=== PATIENT | female | born 1955 | race Caucasian/White ===

== ENCOUNTER 2017-06-20 06:09 | Emergency (ER) | payer MEDICAID ==
[2017-06-20] MEDS ORDERED: Sodium Chloride 0.9% 1,000 ML IV SCH ×2 (06:45→07:00)
--- NOTE | 2017-06-20 06:46 | EDM.PDOC ---
<Keon Rowe Radha - Last Filed: 06/20/17 07:00> ED HPI GENERAL MEDICAL PROBLEM - General Chief Complaint: Gastrointestinal Problem Stated Complaint: VOMITING BLOOD Time Seen by Provider: 06/20/17 06:36 Source of Information: Reports: Patient History Limitations: Reports: No Limitations - History of Present Illness INITIAL COMMENTS - FREE TEXT/NARRATIVE: 61-year-old female presents to the ED boarding nausea vomiting with marked he met emesis. States she vomited twice last night starting about 2000 hrs. with 2 handfuls of blood coming up. Subsequently 2 hours later to more handfuls of blood came up. She did sleep a little bit overnight but about 0500 hrs. awoke with another 2 handfuls of blood emesis. She's been having diarrhea. In the ED she had a large bright red bloody stool per rectum as well. No known history of peptic ulcer disease she does drink alcohol usually--vodka and 7-up--2 shots per day. It's unclear how big the shots are. Clinically she has the appearance of cirrhosis of the liver with ascites. She has strong smell of ketones on her breath. He admits she has not eaten for several days. Onset: Sudden Onset Date: 06/19/17 Onset Time: 20:00 (Apparently first he met emesis was around 2000 hrs. Second he met emesis was around 10:00.) Duration: Hour(s): Location: Reports: Abdomen (Upper GI bleed) Quality: Reports: Other (Has only some mild abdominal cramps.) Severity: Moderate (Moderate to severe upper GI bleed.) Improves with: Reports: None Worsens with: Reports: Other (Spontaneous) Context: Reports: Other (Chronic alcoholism suspect). Denies: Activity ( emesis.), Exercise, Lifting, Sick Contact, Trauma Associated Symptoms: Reports: Cough, cough w sputum (Mild cough from cigarette smoking. Down to 6 cigarettes per day), Loss of Appetite, Malaise, Nausea/ Vomiting, Shortness of Breath, Weakness (Intractable with hematemesis. Neurolysed). Denies: Confusion, Chest Pain, Diaphoresis, Fever/Chills, Headaches, Syncope Treatments FORM [employer] [address] FORMS: Reports: Other (see below) (None.) Abdomen Pain Score (Numeric/FACES): 9 - Related Data Allergies Allergy/AdvReac Type Severity Reaction Status Date / Time No Known Allergies Allergy Verified 06/20/17 06:32 Home Meds: Home Meds . [No Known Home Meds] 06/20/17 [History] Past Medical History Psychiatric History: Reports: Addiction - Past Surgical History Female Surgical History: Reports: Section Musculoskeletal Surgical History: Reports: Knee Replacement Social & Family History - Family History Family Medical History: Noncontributory - Tobacco Use Smoking Status *Q: Current Every Day Smoker Years of Tobacco use: 45 Packs/Tins Daily: 0.3 - Alcohol Use Days Per Week of Alcohol Use: 7 Number of Drinks Per Day: 2 Total Drinks Per Week: 14 - Recreational Drug Use Recreational Drug Use: No - Living Situation & Occupation Living situation: Reports: Single Occupation: Unemployed ED ROS GENERAL - Review of Systems Review Of Systems: See Below Constitutional: Reports: Malaise, Weakness, Fatigue, Decreased Appetite. Denies : Fever, Chills HEENT: Reports: No Symptoms Respiratory: Reports: Shortness of Breath, Cough (History of COPD), Sputum. Denies: Hemoptysis (Occasional dark brown sputum production) Cardiovascular: Reports: Dyspnea on Exertion, Lightheadedness. Denies: Chest Pain, Blood Pressure Problem, Claudication, Edema, Orthopnea Endocrine: Reports: Fatigue GI/Abdominal: Reports: Abdominal Pain (Mild lower abdominal cramping pain.), Decreased Appetite, Hematemesis (Gross he met emesis since last night 1999 hrs. 2 handfuls of blood on 3 occasions since that time), Melena, Nausea, Vomiting : Reports: No Symptoms Musculoskeletal: Reports: Back Pain, Joint Pain (Left total knee replacement. Right knee hurts sometimes) Skin: Reports: Pallor Neurological: Reports: No Symptoms Psychiatric: Reports: No Symptoms Hematologic/Lymphatic: Reports: No Symptoms Immunologic: Reports: No Symptoms ED EXAM, GI/ABD - Physical Exam Exam: See Below Exam Limited By: No Limitations General Appearance: Alert, Mild Distress, Other (Very miranda in color.) Eyes: Bilateral: Pale Conjunctiva (Moderate) Throat/Mouth: Other (Blood coating the oral cavity particular the posterior oropharynx without any clots) Head: Atraumatic, Normocephalic Neck: Normal Inspection, Supple, Non-Tender, Full Range of Motion. No: Lymphadenopathy (L), Lymphadenopathy (R) Respiratory/Chest: Decreased Breath Sounds, Wheezing (Decreased air entry to the lower 40% of lung chou compatible with COPD. Occasional expiratory wheeze. ) Cardiovascular: No Edema, No Gallop, No JVD, Tachycardia, Systolic Murmur (Mild systolic ejection murmur heard at the left lateral sternal border 1 out of 6.) GI/Abdominal Exam: Soft (Hyperactive bowel sounds throughout the abdomen.), Non- Tender, No Organomegaly, No Abnormal Bruit, No Mass, Abnormal Bowel Sounds Rectal (Female) Exam: Other (A red bleeding per rectum.) Extremities: Normal Inspection, Normal Range of Motion, Non-Tender, No Pedal Edema Neurological: Alert, Oriented, CN II-XII Intact, Normal Cognition, Normal Gait ( Walk to the bathroom.) Psychiatric: Normal Affect Skin Exam: Warm, Dry, Intact, Pallor, Other (Grayish in color.) Course - Vital Signs Last Recorded V/S: Last Vital Signs Temp 96.6 F 06/20/17 06:26 Pulse 123 H 06/20/17 06:26 Resp 16 06/20/17 06:26 BP 111/83 06/20/17 06:26 Pulse Ox 100 06/20/17 06:26 Orthostatic Blood Pressure [ 91/72 Standing] Orthostatic Blood Pressure [ 113/75 Sitting] Orthostatic Blood Pressure [ 125/80 Supine] - Orders/Labs/Meds Orders: Active Orders 24 hr Category Date Time Status EKG Documentation Completion [RC] STAT Care 06/20/17 06:39 Active Orthostatic Vital Signs [RC] ASDIRECTED Care 06/20/17 06:38 Active CULTURE STOOL + SHIGATOX [RM] Stat Lab 06/20/17 06:39 Ordered FRESH FROZEN PLASMA [BBK] Stat Lab 06/20/17 07:00 Results PACKED CELLS [RED BLOOD CELLS LP] [BBK] Stat Lab 06/20/17 07:00 Results PATIENT RETYPE [BBK] Stat Lab 06/20/17 07:00 Results TYPE AND SCREEN [BBK] Stat Lab 06/20/17 07:00 Results WBC, STOOL [OP] Stat Lab 06/20/17 06:39 Ordered Octreotide [SandoSTATIN] 200 mcg Med 06/20/17 08:00 Active Sodium Chloride 0.9% [Normal Saline] 100 ml IV ONETIME Pantoprazole [ProTONIX IV] 80 mg Med 06/20/17 07:00 Active Sodium Chloride 0.9% [Normal Saline] 100 ml IV Q10H Sodium Chloride 0.9% [Normal Saline] 1,000 ml Med 06/20/17 06:45 Active IV ASDIRECTED Sodium Chloride 0.9% [Normal Saline] 1,000 ml Med 06/20/17 07:00 Active IV ASDIRECTED Transfuse Fresh Frozen Plasma [COMM] Stat Ot 06/20/17 07:10 Ordered Transfuse PRBC [Transfuse Red Blood Cells] [COMM] Stat Ot 06/20/17 07:09 Ordered Medication Orders Sodium Chloride (Normal Saline) 1,000 mls @ 999 mls/hr IV ASDIRECTED JAMES Last Admin: 06/20/17 06:52 Dose: 999 mls/hr Pantoprazole Sodium 80 mg/ (Sodium Chloride) 100 mls @ 10 mls/hr IV Q10H JAMES Last Admin: 06/20/17 07:32 Dose: 10 mls/hr Sodium Chloride (Normal Saline) 1,000 mls @ 500 mls/hr IV ASDIRECTED JAMES Last Infusion: 06/20/17 08:02 Dose: 75 mls/hr Admin: 06/20/17 07:57 Dose: 500 mls/hr Octreotide Acetate 200 mcg/ (Sodium Chloride) 104 mls @ 12.5 mls/hr IV ONETIME ONE Stop: 06/20/17 16:19 Last Admin: 06/20/17 08:18 Dose: 12.5 mls/hr Labs: Laboratory Tests 06/20/17 06/20/17 06/20/17 Range/Units 07:00 07:00 07:00 WBC 8.25 (3.98-10.04) K/mm3 RBC 3.44 L (3.98-5.22) M/mm3 Hgb 12.3 (11.2-15.7) gm/L Hct 36.3 (34.1-44.9) % MCV 105.5 H (79.4-94.8) fl MCH 35.8 H (25.6-32.2) pg MCHC 33.9 (32.2-35.5) g/dl RDW Std Deviation 57.7 H (36.4-46.3) fL Plt Count 145 L (182-369) K/mm3 MPV 10.1 (9.4-12.3) fl Neutrophils % (Manual) 73 H (40-60) % Band Neutrophils % 14 H (0-10) % Lymphocytes % (Manual) 9 L (20-40) % Atypical Lymphs % 0 % Monocytes % (Manual) 4 (2-10) % Eosinophils % (Manual) 0 L (0.7-5.8) % Basophils % (Manual) 0 L (0.1-1.2) Platelet Estimate Adequate Anisocytosis 1+ slight Macrocytosis 1+ slight RBC Morph Comment Not Reportable PT 13.1 H (8.0-13.0) SECONDS INR 1.22 APTT 29 (22-36) SECONDS Sodium 136 (136-145) mEq/L Potassium 3.2 L (3.5-5.1) mEq/L Chloride 96 L (98-107) mEq/L Carbon Dioxide 26 (21-32) mEq/L Anion Gap 17.2 H (5-15) BUN 9 (7-18) mg/dL Creatinine 0.7 (0.55-1.02) mg/dL Est Cr Clr Drug Dosing 80.01 mL/min Estimated GFR (MDRD) > 60 (>60) mL/min BUN/Creatinine Ratio 12.9 L (14-18) Glucose 118 H (74-106) mg/dL Lactic Acid (0.4-2.0) mmol/L Calcium 8.1 L (8.5-10.1) mg/dL Magnesium 1.5 L (1.8-2.4) mg/dl Total Bilirubin 5.2 H (0.2-1.0) mg/dL AST 359 H (15-37) U/L ALT 74 H (14-59) U/L Alkaline Phosphatase 219 H (46-116) U/L C-Reactive Protein 4.4 H* (<1.0) mg/dL Total Protein 6.7 (6.4-8.2) g/dl Albumin 2.3 L (3.4-5.0) g/dl Globulin 4.4 gm/dL Albumin/Globulin Ratio 0.5 L (1-2) Lipase 55 L (73-393) U/L Ethyl Alcohol 0.02 (0.00) gm% Ketones (0.0-0.3) mM H. pylori IgG Antibody (NEGATIVE) Blood Type Gel Antibody Screen Crossmatch 06/20/17 06/20/17 06/20/17 Range/Units 07:00 07:00 07:00 WBC (3.98-10.04) K/mm3 RBC (3.98-5.22) M/mm3 Hgb (11.2-15.7) gm/L Hct (34.1-44.9) % MCV (79.4-94.8) fl MCH (25.6-32.2) pg MCHC (32.2-35.5) g/dl RDW Std Deviation (36.4-46.3) fL Plt Count (182-369) K/mm3 MPV (9.4-12.3) fl Neutrophils % (Manual) (40-60) % Band Neutrophils % (0-10) % Lymphocytes % (Manual) (20-40) % Atypical Lymphs % % Monocytes % (Manual) (2-10) % Eosinophils % (Manual) (0.7-5.8) % Basophils % (Manual) (0.1-1.2) Platelet Estimate Anisocytosis Macrocytosis RBC Morph Comment PT (8.0-13.0) SECONDS INR APTT (22-36) SECONDS Sodium (136-145) mEq/L Potassium (3.5-5.1) mEq/L Chloride (98-107) mEq/L Carbon Dioxide (21-32) mEq/L Anion Gap (5-15) BUN (7-18) mg/dL Creatinine (0.55-1.02) mg/dL Est Cr Clr Drug Dosing mL/min Estimated GFR (MDRD) (>60) mL/min BUN/Creatinine Ratio (14-18) Glucose (74-106) mg/dL Lactic Acid (0.4-2.0) mmol/L Calcium (8.5-10.1) mg/dL Magnesium (1.8-2.4) mg/dl Total Bilirubin (0.2-1.0) mg/dL AST (15-37) U/L ALT (14-59) U/L Alkaline Phosphatase (46-116) U/L C-Reactive Protein (<1.0) mg/dL Total Protein (6.4-8.2) g/dl Albumin (3.4-5.0) g/dl Globulin gm/dL Albumin/Globulin Ratio (1-2) Lipase (73-393) U/L Ethyl Alcohol (0.00) gm% Ketones 0.94 (0.0-0.3) mM H. pylori IgG Antibody Negative (NEGATIVE) Blood Type O POSITIVE Gel Antibody Screen Negative Crossmatch See Detail 06/20/17 Range/Units 07:00 WBC (3.98-10.04) K/mm3 RBC (3.98-5.22) M/mm3 Hgb (11.2-15.7) gm/L Hct (34.1-44.9) % MCV (79.4-94.8) fl MCH (25.6-32.2) pg MCHC (32.2-35.5) g/dl RDW Std Deviation (36.4-46.3) fL Plt Count (182-369) K/mm3 MPV (9.4-12.3) fl Neutrophils % (Manual) (40-60) % Band Neutrophils % (0-10) % Lymphocytes % (Manual) (20-40) % Atypical Lymphs % % Monocytes % (Manual) (2-10) % Eosinophils % (Manual) (0.7-5.8) % Basophils % (Manual) (0.1-1.2) Platelet Estimate Anisocytosis Macrocytosis RBC Morph Comment PT (8.0-13.0) SECONDS INR APTT (22-36) SECONDS Sodium (136-145) mEq/L Potassium (3.5-5.1) mEq/L Chloride (98-107) mEq/L Carbon Dioxide (21-32) mEq/L Anion Gap (5-15) BUN (7-18) mg/dL Creatinine (0.55-1.02) mg/dL Est Cr Clr Drug Dosing mL/min Estimated GFR (MDRD) (>60) mL/min BUN/Creatinine Ratio (14-18) Glucose (74-106) mg/dL Lactic Acid 6.5 H (0.4-2.0) mmol/L Calcium (8.5-10.1) mg/dL Magnesium (1.8-2.4) mg/dl Total Bilirubin (0.2-1.0) mg/dL AST (15-37) U/L ALT (14-59) U/L Alkaline Phosphatase (46-116) U/L C-Reactive Protein (<1.0) mg/dL Total Protein (6.4-8.2) g/dl Albumin (3.4-5.0) g/dl Globulin gm/dL Albumin/Globulin Ratio (1-2) Lipase (73-393) U/L Ethyl Alcohol (0.00) gm% Ketones (0.0-0.3) mM H. pylori IgG Antibody (NEGATIVE) Blood Type Gel Antibody Screen Crossmatch Meds: Medications Generic Name Dose Route Start Last Admin Trade Name Halima PRN Reason Stop Dose Admin Sodium Chloride 1,000 mls @ 999 mls/hr 06/20/17 06:45 06/20/17 06:52 Normal Saline IV 999 mls/hr ASDIRECTED JAMES Administration Pantoprazole Sodium 80 mg/ 100 mls @ 10 mls/hr 06/20/17 07:00 06/20/17 07:32 Sodium Chloride IV 10 mls/hr Q10H JAMES Administration Sodium Chloride 1,000 mls @ 500 mls/hr 06/20/17 07:00 06/20/17 08:02 Normal Saline IV 75 mls/hr ASDIRECTED JAMES Infusion Octreotide Acetate 200 mcg/ 104 mls @ 12.5 mls/hr 06/20/17 08:00 06/20/17 08: 18 Sodium Chloride IV 06/20/17 16:19 12.5 mls/hr ONETIME ONE Administration Discontinued Medications Generic Name Dose Route Start Last Admin Trade Name Halima PRN Reason Stop Dose Admin Tranexamic Acid 1,000 mg/ 110 mls @ 400 mls/hr 06/20/17 06:48 06/20/17 07:28 Sodium Chloride IV 06/20/17 07:04 400 mls/hr ONETIME ONE Administration Lorazepam 0.5 mg 06/20/17 08:06 06/20/17 08:11 Ativan IVPUSH 06/20/17 08:07 0.5 mg ONETIME ONE Administration Metoclopramide HCl 10 mg 06/20/17 07:00 06/20/17 07:14 Reglan IVPUSH 06/20/17 07:01 10 mg ONETIME ONE Administration Octreotide Acetate 25 mcg 06/20/17 07:55 06/20/17 08:00 Sandostatin IVPUSH 06/20/17 07:56 25 mcg ONETIME ONE Administration Pantoprazole Sodium 80 mg 06/20/17 06:47 06/20/17 07:22 Protonix Iv IVPUSH 06/20/17 06:48 80 mg .BOLUS ONE Administration - Radiology Interpretation Free Text/Narrative:: -year-old female presents to the ED reporting gross he met emesis starting about 2000 hrs. last night. She reports spontaneous he met emesis of 2 handfuls of bright red blood. This occurred once again 2 hours later about 2200 hrs. She did go to bed but awoke around 0500 hrs. with hematemesis of 2 handfuls of blood again. Ports she's had some diarrhea which was dark in color. In the ED she passed bright red blood per rectum. Prostatic BPs are strongly positive. History suggests chronic alcoholism. She drinks she states she drinks Vodka- 7 up to shots per day but it's unclear how large the shots are. She has the clinical appearance of cirrhosis of the liver with ascites. Therefore the possibility of esophageal varices as a source for bleeding is possible. Plan 2 large-bore IVs normal saline running at open and 1 in 500 mils per hour in the other. Plan will be Protonix 80 mg IV bolus then started drip at 10 mils per hour. Transemic acid 1000 mg IV as well. She will be crossmatched for 2 units of packed cells in a unit of fresh frozen plasma on suspicion of auto anticoagulation from cirrhosis of the liver. Labs including PT and PTT have been drawn. She has consented to blood transfusion. Plan will be to transfuse her soon as the blood becomes available. Departure - Departure Disposition: DC/Tfer to [facility] 02 Clinical Impression: GI bleed Qualifiers: GI bleed type/associated pathology: unspecified gastrointestinal hemorrhage type Qualified Code(s): K92.2 - Gastrointestinal hemorrhage, unspecified - Discharge Information Referrals: PCP,None [Primary Care Provider] - Forms: ED Department Discharge - My Orders Last 24 Hours: My Active Orders 06/20/17 08:00 Octreotide [SandoSTATIN] 200 mcg Sodium Chloride 0.9% [Normal Saline] 100 ml IV ONETIME - Assessment/Plan Last 24 Hours: My Active Orders 06/20/17 08:00 Octreotide [SandoSTATIN] 200 mcg Sodium Chloride 0.9% [Normal Saline] 100 ml IV ONETIME <Mauri Kahn - Last Filed: 06/20/17 09:14> ED EXAM, GI/ABD - Physical Exam Rectal (Female) Exam: Other (on rectal brown stool present with flecks of bright blood visible, strongly heme pos. ) EKG INTERPRETATION EKG Date: 06/20/17 Rate (Beats/Min): 118 [place]: Normal P-Wave: Present QRS: Normal ST-T: Normal Course - Re-Assessments/Exams Free Text/Narrative Re-Assessment/Exam: 06/20/17 07:30, Have assumed care from Dr Rowe, I agree with his hx and exam as documented. 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 I am informed that she understated her alcohol intake, more like 2 to 3 pints of vodka per day. Last alcohol sometime yesterday or last evening. Therefore we are going to transfer her to higher level of care. Ortho's a short time ago 125/80, 120 lying, 91/72, 128 standing. Hgb has come back at 12.3. Will transfer to [facility] ED, Dr Tsai accepting Phys. 06/20/17 07:40. I was going to send her helicopter, it is down for maintenance. Over 1 hr wait expected for ground ambulance, will therefore send her fixed wing. Crew has been notified. 06/20/17 08:05. 125/80. have given octreotide 25 mcg IV, will start 25 mcg/hr drip. BP had been 112/76, now back up to 124/78, A bit anxious, will give ativan 0.5 mg IV. She has not vomited any further blood while here in the ED but has passed brown stool with brown liquid diarrhea and small strands of blood visible in the commode at least 3 times from arrival. Departure - Departure Time of Disposition: 07:45 Condition: Serious - My Orders Last 24 Hours: My Active Orders 06/20/17 08:00 Octreotide [SandoSTATIN] 200 mcg Sodium Chloride 0.9% [Normal Saline] 100 ml IV ONETIME - Assessment/Plan Last 24 Hours: My Active Orders 06/20/17 08:00 Octreotide [SandoSTATIN] 200 mcg Sodium Chloride 0.9% [Normal Saline] 100 ml IV ONETIME
[2017-06-20] MEDS ORDERED: Pantoprazole 40 MG Vial IVPUSH ONE (06:47)
[2017-06-20] MEDS ORDERED: Tranexamic Acid 1,000 MG in Sodium Chloride 0.9% 100 ML IV ONE (06:48)
[2017-06-20] MEDS ORDERED: Metoclopramide 10 MG/2 ML SDV IVPUSH ONE (07:00)
[2017-06-20] MEDS ORDERED: Pantoprazole 80 MG in Sodium Chloride 0.9% 100 ML IV SCH (07:00)
[2017-06-20] MEDS ORDERED: Octreotide 50 MCG/1 ML Amp IVPUSH ONE (07:55)
[2017-06-20] MEDS ORDERED: LORazepam 2 MG/ML SDV IVPUSH ONE (08:06)
== END 2017-06-20 08:44 ==
LOC: JD.ED 06:09
DX: K92.2 Gastrointestinal hemorrhage, unspecified (principal); F17.210 Nicotine dependence, cigarettes, uncomplicated; J44.9 Chronic obstructive pulmonary disease, unspecified
CPT/HCPCS: 36415; 80053; 82009; 83605; 83690; 83735; 85025; 85610; 85730; 86140; 86677; 93005; 96361; 96365; 96367; 96368; 96375; 96376; 99285; C9113; G0480; J2060; J2354; J2765; J7030; J7040; P9017